=== PATIENT | male | born 1955 | race Caucasian/White ===

== ENCOUNTER 2017-02-24 13:38 | Inpatient (IN) | payer MEDICARE, OTHER ==
[~2017-02-24] VITALS: Ht 170.2 cm; Wt 63.0 kg
[2017-02-24] VITALS (7 sets, daily range): BP systolic 103–152; BP diastolic 57–86
[2017-02-24] MEDS ORDERED: NACL 0.9% 1,000 ML IV SCH ×2 (13:54→17:43)
--- NOTE | 2017-02-24 13:55 | NUR ---
PT BIBA FOR C/O ELEVATED BLOOD SUGAR, 597 IN FIELD. HX DM, HTN, HYPERLIPIDEMIA, CABG. . PT STATESHE FEELS NAUSEOUS;PT VOMITTED 3X INBED;PT STATES HE FEELS WEAK;SKIN IS PINK/WARM/DRY; AAOX4 WITH EVEN AND STEADY GAIT; LUNGS CLEAR BL; HR EVEN AND REGULAR; PT DENIES ANY FEVER, CP, SOB, OR COUGH AT THIS TIME; PATIENT STATES PAIN OF 6/10 ABDOMINAL PAIN AT THIS TIME; PATIENT POSITIONED FOR COMFORT; HOB ELEVATED; BEDRAILS UP X2; BED DOWN. ALL MONITORS IN PLACED.
[2017-02-24 14:12] LABS: BLOOD GAS PCO2 16.7 mmHg (20-50); BLOOD GAS PH 7.205 (7.35-7.45)
[2017-02-24 14:13] LABS: BLOOD GAS BASE EXCESS -18.9 mmol/L (-2.0-2.0); BLOOD GAS HCO3 6.5 mmol/L; BLOOD GAS O2 SAT% 97.9 % (92.0-98.5)
--- NOTE | 2017-02-24 14:23 | NUR ---
PT RESTING ON BED;ASKED FOR WATER;NOTIFIED ERMD IF PT CAN HAVE WATER BECAUSE PT HAS N/V/ABDOMINAL PAIN;
[2017-02-24 14:26] LABS: HEMATOCRIT 49.6 % (36-52); HEMOGLOBIN 15.8 g/dL (12.0-18.0); MEAN CORPUSCULAR HEMOGLOBIN 32 pg (27-31); MEAN CORPUSCULAR HGB CONC 32 g/dL (33-37); MEAN CORPUSCULAR VOLUME 100 fL (80-94); PLATELET COUNT (AUTO) 416 K/uL (140-450); RED BLOOD CELL COUNT(AUTO) 4.97 MIL/uL (4.20-6.10); RED CELL DISTRIBUTION WIDTH 12.7 % (11.6-13.7)
[2017-02-24 14:37] LABS: WHITE BLOOD COUNT (AUTO) 39.6 K/uL (4.8-10.8)
[2017-02-24 14:43] LABS: BAND % (MANUAL) 14 % (0-8); NEUTROPHILS % (MANUAL) 72 (43-65)
[2017-02-24 14:44] LABS: LYMPHOCYTES % (MANUAL) 7 % (20-46); METAMYELOCYTES % 1 % (0-0); MONOCYTES % (MANUAL) 6 % (5-12); PLATELET ESTIMATE ADEQUATE
[2017-02-24 14:53] LABS: INR 1.1 (0.8-1.2); PROTHROMBIN TIME 10.8 secs (10.8-13.4)
[2017-02-24 14:54] LABS: ALBUMIN 4.3 g/dL (3.4-5.0); ANION GAP 34.3 (8-16); CALCIUM 8.5 mg/dL (8.5-10.1); CREATININE 1.6 mg/dL (0.7-1.3); POTASSIUM 5.7 mmol/L (3.5-5.1); TOTAL BILIRUBIN 0.7 mg/dL (0.0-1.0); TOTAL PROTEIN, SERUM 7.8 g/dL (6.4-8.2)
[2017-02-24 14:59] LABS: CARBON DIOXIDE 9.4 mmol/L (21-32)
[2017-02-24 15:09] LABS: LACTIC ACID 3.6 mmol/L (0.4-2.0)
[2017-02-24] MEDS ORDERED: ONDANSETRON 4 MG/2 ML VIAL IVP ONE (15:10)
[2017-02-24 15:12] LABS: APPEARANCE,URINE CLEAR (CLEAR); BILIRUBIN,URINE NEGATIVE (NEGATIVE); BLOOD, URINE 1+ (NEGATIVE); COLOR,URINE YELLOW (YELLOW); LEUKOCYTE ESTERASE ,URINE NEGATIVE (NEGATIVE); NITRITE, URINE NEGATIVE (NEGATIVE); PH,URINE 5.5 (5.0-9.0); PROTEIN,URINE NEGATIVE (NEGATIVE); UGLUCOSE 3+ (NEGATIVE); UROBILINOGEN,URINE 0.2 EU/dL (0.2 - 1)
[2017-02-24] MEDS ORDERED: INSULIN HUMAN REGULAR 100 UNITS in NACL 0.9% 100 ML IV ONE (15:20)
[2017-02-24] MEDS ORDERED: INSULIN HUMAN REGULAR 100 UNITS in NACL 0.9% 100 ML IV SCH ×4 (15:20→17:45)
--- NOTE | 2017-02-24 15:20 | NUR ---
PT RESTING WITH HANDS UNDER HEAD---C/O NAUSEA--GIVEN ZOFRAN IV SPOKE WITH MD OVER PT'S LABS ---DKA PT TO START INSULIN DRIP
[2017-02-24 15:22] LABS: RBC,URINE 0-3 /HPF (0-5); WBC,URINE 0-3 /HPF (0-5)
[2017-02-24 15:23] LABS: BACTERIA,URINE None Seen /HPF (None Seen); SQUAMOUS EPITHELIAL CELL,UR None Seen /LPF (0-3 (FEW))
[2017-02-24] MEDS ORDERED: NACL 0.9% 1,000 ML IV ONE (15:40)
--- NOTE | 2017-02-24 15:47 | NUR ---
NOVOLIN WAS ADMINISTERED AT 1535;BS OF 535;
[2017-02-24] MEDS ORDERED: oxyCODONE/APAP 5/325 MG 1 TAB TAB PO PRN (16:10)
[2017-02-24] MEDS ORDERED: HYDROcodone/APAP 7.5/325 MG 1 TAB PO PRN (16:10)
[2017-02-24] MEDS ORDERED: LORazepam 1 MG TAB PO PRN (16:10)
[2017-02-24] MEDS ORDERED: ACETAMINOPHEN 325 MG TAB PO PRN (16:10)
[2017-02-24] MEDS ORDERED: DOCUSATE SODIUM 100 MG GELCAP PO PRN (16:10)
--- NOTE | 2017-02-24 16:47 | NUR ---
Patient will be admitted to care of . Admited to ICU. Will go to roomICU 3. Belongings list completed. Report to GIULIANA MARMOLEJO.
--- NOTE | 2017-02-24 17:00 | NUR ---
REPORT RECEIVED FROM GIULIANA DELATORRE. PT ARRIVED IN [facility] WITH 2 RN. ALERT AND ORIENTED X4. ABLE TO FOLLOW COMMANDS. NO C/O PAIN OR DISCOMFORT. NO C/O NAUSEA. PERRLA NOTED IN BILATERAL EYES. ON RA SATURATING AT 98%. ST ON MONITOR. ABLE TO MOVE ALL EXTREMITIES. WEAKNESS AND DECREASE IN SENSATION NOTED. LEFT SUBCLAVIAN PERIPHERAL IV 18 GAUGE NOTED. INTACT AND PATENT. INFUSING INSULIN DRIP ORDERED. TOLERATED WELL. PT ABLE TO VOID INDEPENDENTLY. SKIN IS INTACT. SCAR NOTED ON SCALP D/T RECENT INJURY. OPEN TO AIR. SAFETY PRECAUTION MAINTAINED. BED AT LOWEST SETTING. CALL LIGHT WITHIN REACH. WILL CONTINUE TO MONITOR FOR CHANGES.
[2017-02-24] MEDS: NACL 0.9% 1,000 ML IV SCH ×2 (17:33→23:54)
[2017-02-24] MEDS: PIPER/TAZO 3.375GM/D5W PREMIX 50 ML IV SCH (17:50)
[2017-02-24 17:58] LABS: AMYLASE 45 U/L (25-115); CHOL/HDL RATIO 2.5 (1-4.5); CHOLESTEROL 168 mg/dL (<200); FREE T4 (FREE THYROXINE) 1.66 ng/dL (0.76-1.46); HDL CHOLESTEROL 68 mg/dL (40-60); LDL (CALC) 77 mg/dL (60-100); LIPASE 39 U/L (73-393); MAGNESIUM 2.2 mg/dL (1.8-2.4); PHOSPHORUS 5.1 mg/dL (2.5-4.9); THYROID STIMULATING HORMONE 5.84 uIU/mL (0.34-3.74); TRIGLYCERIDES 117 mg/dL (30-150)
[2017-02-24 18:00] LABS: ALCOHOL, BLOOD < 3 mg/dL (<3); LACTATE DEHYDROGENASE 344 U/L (85-227)
[2017-02-24] MEDS: BLOOD GLUCOSE MONITORING 1 DEV DEV FS SCH ×6 (18:51→23:52)
[2017-02-24] MEDS ORDERED: HYDROmorphone 1 MG/ML AMP IVP SCH (18:55)
[2017-02-24] MEDS ORDERED: LORazepam 2 MG/ML VIAL IVP SCH (18:55)
--- NOTE | 2017-02-24 19:15 | NUR ---
REPORT GIVEN TO GIULIANA CHAND. PT IS STABLE.
--- NOTE | 2017-02-24 19:20 | NUR ---
RECEIVED REPORT FROM CORINA GIORDANO
--- NOTE | 2017-02-24 19:20 | NUR ---
PATIENT IN BED, NO SIGNS OF DISTRESS. PATIENT AOX4. PATIENT OXYGEN SATURATION 100 ON ROOM AIR. BREATH SOUNDS CLEAR ON AUSCULTATION. S1S2 HEARD ON AUSCULTATION. PATIENT HAD ACTIVE BOWEL SOUNDS. NPO EXCEPT FOR MEDICATIONS. PATIENT VOIDED 1000ML. PATIENT IS AMBULATORY BUT HAS UNSTEADY GAIT. PATIENTS SKIN IS NOT INTACT, HE HAS A WOUND ON HIS HEAD FROM A FALL FROM 1 DAY AGO. WILL CONTINUE TO MONITOR PATIENT. CALL LIGHT WITHIN REACH, PATIENT CLOSE TO THE NURSES STATION. WILL CONTINUE TO DO FREQUENT VISUAL CHECKS. IV ON LEFT JV #18 INTACT. PATIENT ON INSULIN DRIP. BLOOD GLUCOSE MONITORING EVERY HOUR.
[2017-02-24] MEDS: ONDANSETRON 4 MG/2 ML VIAL IM/IVP PRN (19:28)
--- NOTE | 2017-02-24 19:30 | NUR ---
CENTRAL LINE PLACEMENT BY DR SCHULTZ AND DR SEGURA.
[2017-02-24 19:35] LABS: LACTIC ACID 2.4 mmol/L (0.4-2.0)
--- NOTE | 2017-02-24 19:40 | NUR ---
RECEIVED CRITICAL VALUE FOR PATIENT, LACTIC ACID 2.4. DR SEGURA WAS AT THE BEDSIDE. THE DR WAS MADE AWARE OF THE CRITICAL LACTIC ACID AND DR SEGURA SAID NO FURTHER ORDERS WERE INDICATED.
[2017-02-24 20:11] LABS: ANION GAP 26.6 (8-16); CALCIUM 7.8 mg/dL (8.5-10.1); CARBON DIOXIDE 13.1 mmol/L (21-32); CREATININE 1.5 mg/dL (0.7-1.3); POTASSIUM 4.7 mmol/L (3.5-5.1)
[2017-02-24 20:13] LABS: MAGNESIUM 1.9 mg/dL (1.8-2.4); PHOSPHORUS 2.4 mg/dL (2.5-4.9)
--- NOTE | 2017-02-24 20:30 | NUR ---
CHEST XRAY DONE TO DETERMINE CENTRAL LINE PLACEMENT
--- NOTE | 2017-02-24 21:00 | NUR ---
PATIENT IN BED, NO SIGNS OF DISTRESS. BROTHER AT THE BEDSIDE
--- NOTE | 2017-02-24 23:00 | NUR ---
PATIENT IN BED, NO SIGNS OF DISTRESS. CENTRAL LINE CONFIRMED, INFUSING IV FLUIDS
[2017-02-25] VITALS (14 sets, daily range): BP systolic 90–135; BP diastolic 57–88
[2017-02-25] MEDS: PIPER/TAZO 3.375GM/D5W PREMIX 50 ML IV SCH ×4 (00:05→17:33)
[2017-02-25 00:09] LABS: BLOOD GAS BASE EXCESS -7.3 mmol/L (-2.0-2.0); BLOOD GAS HCO3 16.2 mmol/L; BLOOD GAS O2 SAT% 97.5 % (92.0-98.5); BLOOD GAS PCO2 27.8 mmHg (20-50); BLOOD GAS PH 7.383 (7.35-7.45); BLOOD GAS PO2 92.8 mmHg
[2017-02-25 00:36] LABS: ANION GAP 13.3 (8-16); CALCIUM 7.4 mg/dL (8.5-10.1); CARBON DIOXIDE 23.1 mmol/L (21-32); CREATININE 1.4 mg/dL (0.7-1.3); POTASSIUM 4.4 mmol/L (3.5-5.1)
[2017-02-25] MEDS: BLOOD GLUCOSE MONITORING 1 DEV DEV FS SCH ×16 (00:57→21:43)
[2017-02-25] MEDS: DEXT 5% / NACL 0.45% 1,000 ML IV SCH ×6 (01:00→19:54)
--- NOTE | 2017-02-25 02:00 | NUR ---
PATIENT IN BED RESTING. INSULIN DRIP INFUSING. PATIENTS INSULIN DRIP IS CHANGED FROM 6.3UNITS/HR TO 3.15UNITS AN HOUR. PATIENTS BLOOD SUGAR FELL BELOW 200. DR WAS NOTIFIED
[2017-02-25] MEDS: NACL 0.9% 1,000 ML IV SCH ×3 (02:07→23:04)
--- NOTE | 2017-02-25 04:45 | NUR ---
PATIENTS ANION GAP FELL TO 10.6. DR SEGURA NOTIFIED. DR SEGURA SAID TO WAIT FOR THE NEXT ANION GAP RESULT THAT IS BELOW 12 TO DC INSULIN DRIP.
[2017-02-25 05:11] LABS: ANION GAP 10.6 (8-16); CALCIUM 7.4 mg/dL (8.5-10.1); CARBON DIOXIDE 25.3 mmol/L (21-32); CREATININE 1.3 mg/dL (0.7-1.3); POTASSIUM 3.9 mmol/L (3.5-5.1)
--- NOTE | 2017-02-25 05:50 | NUR ---
PATIENTS BLOOD SUGAR DROPS TO 114, CALLED DR SEGURA AND HE INCREASED D5 1/2 NS TO 250ML/HR. DR CHAIDEZ CAME TO SEE THE PATIENT. I TOLD HIM THAT THE PATIENT HAD PVD AND ALSO HAS AN ORDER FOR SCD. DR CHAIDEZ SAID HE WILL DC SCD'S AND INPUT THE PATIENTS HOME MEDICATION ELIQUIS.
--- NOTE | 2017-02-25 06:45 | NUR ---
PATIENT IN BED RESTING BS 79
--- NOTE | 2017-02-25 07:19 | NUR ---
GAVE REPORT TO SARINA GIORDANO
--- NOTE | 2017-02-25 07:30 | NUR ---
RECEIVED REPORT FROM JAGRUTI GIORDANO. PT AWAKE, ALERT, AND ORIENTED. BEDSIDE MONITOR SHOWS SR. ON ROOM AIR, NO S/S OF RESPIRATORY DISTRESS NOTED. PT HAS RIGHT I.J TLC RUNNING INSULIN DRIP AT 3.15 ML/HR AND D51/2 NS . GOOD BLOOD RETURN. PT ABLE TO MOVE ALL HIS EXTREMITIES .CALL LIGHT IN REACH, HOB ELEVATED 30 DEGREES WITH LOW BED POSITION, WILL CONTINUE TO MONITOR PT.
--- NOTE | 2017-02-25 07:45 | NUR ---
FINGER BLOOD SUGAR CHECKED 58, ORANGE JUICE GIVEN. PT WILL HAVE BREAKFAST IMMEDIATELY.
[2017-02-25 08:10] LABS: HEMATOCRIT 40.9 % (36-52); HEMOGLOBIN 13.9 g/dL (12.0-18.0); MEAN CORPUSCULAR HEMOGLOBIN 33 pg (27-31); MEAN CORPUSCULAR HGB CONC 34 g/dL (33-37); MEAN CORPUSCULAR VOLUME 96 fL (80-94); PLATELET COUNT (AUTO) 296 K/uL (140-450); RED BLOOD CELL COUNT(AUTO) 4.26 MIL/uL (4.20-6.10); WHITE BLOOD COUNT (AUTO) 24.1 K/uL (4.8-10.8)
[2017-02-25] MEDS: PANTOPRAZOLE 40 MG INJ VIAL IVP SCH (08:29)
[2017-02-25] MEDS: ONDANSETRON 4 MG/2 ML VIAL IM/IVP PRN (08:29)
--- NOTE | 2017-02-25 08:29 | NUR ---
DR. MOSLEY MAKING ROUND, UPDATED PT'S CONDITION . PT HAS NAUSEA , ZOFRAN GIVEN ORDERED.
--- NOTE | 2017-02-25 08:33 | NUR ---
PATIENT HAS BEEN SCREENED AND CATEGORIZED HIGH NUTRITION RISK. PATIENT WILL BE SEEN WITHIN 1-2 DAYS OF ADMISSION. 02/25/17-02/26/[address]
--- NOTE | 2017-02-25 09:02 | NUR ---
CM NOTE PER SHOT POLISHER AND INSPECTOR [place], REVIEWS SHOULD BE SENT TO BOTH [facility] AND [facility]. FAXED INITIAL REVIEW TO MARIA EUGENIA [phone] PH [phone] MIRANDA MCCARTY EXT [phone] AND TO [facility] [phone] PH [phone]
[2017-02-25 09:09] LABS: T4 (THYROXINE) 7.5 ug/dL (4.5-12.0)
[2017-02-25 09:14] LABS: ANION GAP 12.5 (8-16); CALCIUM 7.5 mg/dL (8.5-10.1); CARBON DIOXIDE 24.1 mmol/L (21-32); CREATININE 1.2 mg/dL (0.7-1.3); POTASSIUM 3.6 mmol/L (3.5-5.1)
[2017-02-25 09:39] LABS: BAND % (MANUAL) 10 % (0-8); LYMPHOCYTES % (MANUAL) 8 % (20-46); MONOCYTES % (MANUAL) 8 % (5-12); NEUTROPHILS % (MANUAL) 74 (43-65)
[2017-02-25 09:40] LABS: PLATELET ESTIMATE ADEQUATE
--- NOTE | 2017-02-25 09:40 | NUR ---
NOTIFIED THAT PT COMPLAINS HEADACHE AND PT HAD FALL ON FEBRUARY 23 ( PER JAGRUTI GIORDANO). AN OLD WOUND NOTED ON PT'S HEAD. DR. RAMIREZ WILL COME TO CHECK PT.
[2017-02-25] MEDS ORDERED: METOCLOPRAMIDE 10 MG/2 ML INJ VIAL IVP PRN (09:45)
[2017-02-25] MEDS: MORPHINE SULFATE 2 MG/ML SYR IVP PRN ×2 (10:03→21:43)
--- NOTE | 2017-02-25 10:03 | NUR ---
PT COMPLAINED HEADACHE AT THE SCALE OF 8/10. MORPHINE 2 MG GIVEN ORDERED.
[2017-02-25 10:19] LABS: HEMOGLOBIN A1C 10.7 % (4.8-5.6)
[2017-02-25] MEDS: APIXABAN 2.5 MG TAB PO SCH ×2 (11:01→21:42)
--- NOTE | 2017-02-25 11:07 | NUR ---
PT LEFT FOR HEAD CT.
--- NOTE | 2017-02-25 11:20 | NUR ---
PT BACK TO ICU
[2017-02-25 12:10] LABS: ANION GAP 11.5 (8-16); CALCIUM 7.2 mg/dL (8.5-10.1); CARBON DIOXIDE 24.1 mmol/L (21-32); CREATININE 1.1 mg/dL (0.7-1.3); POTASSIUM 3.6 mmol/L (3.5-5.1)
--- NOTE | 2017-02-25 12:28 | NUR ---
02/25/17 RD INITIAL ASSESSMENT COMPLETED PLEASE REFER TO NUTRITION ASSESSMENT UNDER CARE ACTIVITY FOR ESTIMATED NUTRITIONAL NEEDS. 1. CONTINUE CLEAR LIQUID DIET, WHEN MEDICALLY FEASIBLE ADVANCE TOLERATED TO 75 G CONSISTENT CARBOHYDRATE DIET 2. PROVIDE NUTRITION THERAPY EDUCATION NEEDED 3. RD TO FOLLOW-UP 2-3 DAYS; HIGH RISK KIZZY LUNA RD
--- NOTE | 2017-02-25 12:29 | NUR ---
PT SLEEPING AT THIS TIME BUT EASILY AWAKING. PT STATED HE FEELS PAIN RELIVED AND NO NAUSEA AT THIS TIME.
[2017-02-25] MEDS ORDERED: PROBIOTIC SCREEN 1 EA MISC MC PRN (13:05)
[2017-02-25] MEDS ORDERED: DEXTROSE 50% 50 ML SYR IVP PRN (14:05)
--- NOTE | 2017-02-25 14:16 | NUR ---
STOP INSULIN DRIP ORDERED. WILL CLOSELY MONITOR PT.
--- NOTE | 2017-02-25 16:43 | NUR ---
FINGER BLOOD SUGAR CHECKED 108, NO INSULIN COVERAGE NEEDED.
--- NOTE | 2017-02-25 17:30 | NUR ---
DINNER TRAY SERVED, PT HAD 50% OF THE DINNER TRAY.
[2017-02-25] MEDS: GABAPENTIN 300 MG CAP PO SCH (17:33)
--- NOTE | 2017-02-25 19:06 | NUR ---
REPORT GIVEN TO JAGRUTI GIORDANO. NO RESPIRATORY DISTRESS AT THIS TIME. VSS.
--- NOTE | 2017-02-25 19:20 | NUR ---
RECEIVED REPORT FROM SARINA GIORDANO.
--- NOTE | 2017-02-25 19:33 | NUR ---
PATIENT IN BED, NO SIGNS OF DISTRESS. AOX4, BREATH SOUNDS CLEAR. S1S2 HEARD ON AUSCULTATION. PATIENT SINUS RHYTHM ON THE MONITOR. PATIENT HAS DIABETES, ACCU CHECK ACHS. PATIENT VOIDING. PATIENT COMPLAINS OF NUMBNESS ON ALL EXTREMETIES. PATIENT ON ELIQUIS FOR DVT PROPHYLAXIS. TRIPLE LUMEN IJ CATHETER ON RIGHT SIDE. PATIENT DENIES PAIN. CALL LIGHT WITHIN REACH. PATIENT CLOSE TO NURSES STATION. WILL CONTINUE TO DO FREQUENT VISUAL CHECKS.
[2017-02-25] MEDS ORDERED: CARVEDILOL 3.125 MG TAB PO SCH (21:00)
[2017-02-25] MEDS: ATORVASTATIN 20 MG TAB PO SCH (21:41)
[2017-02-25] MEDS: INSULIN LISPRO SLIDING SCALE 100 UNITS/ML VIAL SUBQ PRN (21:50)
--- NOTE | 2017-02-25 22:00 | NUR ---
PATIENT IN BED, COMPLAINS OF HEADACHE 8/10 PAIN. WAS GIVEN MEDICATION AND PATIENT IS NOW SLEEPING, NO COMPLAINTS OF PAIN.
--- NOTE | 2017-02-25 22:30 | NUR ---
PATIENTS BLOOD SUGAR WAS 356. DR. SEGURA CAME TO SEE PATIENT AND WAS NOTIFIED OF THE HIGH BLOOD SUGAR. DR. SEGURA DISCONTINUED D5 1/2 NS AND ORDERS NORMAL SALINE AT 120ML/HR. THE NEW IV FLUIDS WERE STARTED.
[2017-02-25] MEDS ORDERED: APAP/BUTAL/CAFF 325/50/40 MG 1 TAB PO PRN (22:40)
[2017-02-25 23:24] LABS: ANION GAP 15.7 (8-16); CARBON DIOXIDE 20.1 mmol/L (21-32); CREATININE 1.3 mg/dL (0.7-1.3); POTASSIUM 3.8 mmol/L (3.5-5.1)
--- NOTE | 2017-02-25 23:27 | NUR ---
PATIENT VOIDED 750ML
[2017-02-26] VITALS (9 sets, daily range): BP systolic 122–160; BP diastolic 68–86
--- NOTE | 2017-02-26 01:00 | NUR ---
PATIENT IN BED, DENIES PAIN, NO SIGNS OF DISTRESS. SR ON THE MONITOR.
--- NOTE | 2017-02-26 03:50 | NUR ---
PATIENT SLEEPING NO SIGNS OF DISTRESS. O2 SATURATION 99% ON RA. PATIENT VOIDED 825ML
[2017-02-26 05:04] LABS: HEMOGLOBIN 13.5 g/dL (12.0-18.0); MEAN CORPUSCULAR HEMOGLOBIN 32 pg (27-31); MEAN CORPUSCULAR HGB CONC 33 g/dL (33-37); MEAN CORPUSCULAR VOLUME 98 fL (80-94); PLATELET COUNT (AUTO) 251 K/uL (140-450); RED BLOOD CELL COUNT(AUTO) 4.18 MIL/uL (4.20-6.10); RED CELL DISTRIBUTION WIDTH 12.4 % (11.6-13.7)
[2017-02-26] MEDS: PIPER/TAZO 3.375GM/D5W PREMIX 50 ML IV SCH ×4 (05:17→17:37)
[2017-02-26] MEDS: MORPHINE SULFATE 2 MG/ML SYR IVP PRN ×3 (05:30→23:19)
--- NOTE | 2017-02-26 05:34 | NUR ---
PATIENT COMPLAINED OF HEADACHE 03/26, PATIENT WAS GIVEN MEDIATION. PATIENT NOW RESTING.
[2017-02-26] MEDS: NACL 0.9% 1,000 ML IV SCH ×4 (05:44→22:25)
[2017-02-26 06:16] LABS: MAGNESIUM 1.6 mg/dL (1.8-2.4); PHOSPHORUS 2.1 mg/dL (2.5-4.9)
--- NOTE | 2017-02-26 06:27 | NUR ---
PATIENT IN BED SLEEPING NO SIGNS OF DISTRESS
[2017-02-26 06:40] LABS: LYMPHOCYTES % (MANUAL) 4 % (20-46); MONOCYTES % (MANUAL) 9 % (5-12); NEUTROPHILS % (MANUAL) 87 (43-65)
--- NOTE | 2017-02-26 07:15 | NUR ---
GAVE REPORT TO SARINA GIORDANO
[2017-02-26] MEDS: BLOOD GLUCOSE MONITORING 1 DEV DEV FS SCH ×4 (07:21→20:44)
[2017-02-26] MEDS: INSULIN LISPRO SLIDING SCALE 100 UNITS/ML VIAL SUBQ PRN ×2 (07:22→11:53)
--- NOTE | 2017-02-26 07:30 | NUR ---
RECEIVED REPORT FROM JAGRUTI GIORDANO. PT AWAKE, ALERT, AND ORIENTED. BEDSIDE MONITOR SHOWS SR. ON ROOM AIR, NO S/S OF RESPIRATORY DISTRESS NOTED. PT HAS RIGHT I.J TLC RUNNING NS AT 200 ML/HR. GOOD BLOOD RETURN. PT ABLE TO MOVE ALL HIS EXTREMITIES . POC DISCUSSED WITH PT, PT VERBALIZED UNDERSTANDING.CALL LIGHT IN REACH, HOB ELEVATED 30 DEGREES WITH LOW BED POSITION, WILL CONTINUE TO MONITOR PT.
[2017-02-26 07:53] LABS: ANION GAP 15.4 (8-16); CALCIUM 7.3 mg/dL (8.5-10.1); CARBON DIOXIDE 20.8 mmol/L (21-32); POTASSIUM 4.2 mmol/L (3.5-5.1)
[2017-02-26] MEDS: ONDANSETRON 4 MG/2 ML VIAL IM/IVP PRN (08:30)
[2017-02-26] MEDS: CARVEDILOL 3.125 MG TAB PO SCH ×2 (08:46→17:37)
[2017-02-26] MEDS: GABAPENTIN 300 MG CAP PO SCH ×3 (08:46→17:37)
[2017-02-26] MEDS: LACTOBACILLUS RHAMNOSUS GG 1 EACH CAP PO SCH (08:46)
[2017-02-26] MEDS: PANTOPRAZOLE 40 MG INJ VIAL IVP SCH (08:46)
[2017-02-26] MEDS: AMIODARONE 200 MG TAB PO SCH (08:47)
[2017-02-26] MEDS: CLOPIDOGREL 75 MG TAB PO SCH (08:51)
--- NOTE | 2017-02-26 08:51 | NUR ---
CM NOTE FAXED CONCURRENT REVIEW TO [facility] [phone] PH [phone] CM MIREYA MCCARTY EXT [phone] AND TO [facility] [phone] PH [phone]
[2017-02-26] MEDS: FLUDROCORTISONE 0.1 MG TAB PO SCH (08:52)
[2017-02-26] MEDS: FENOFIBRATE 48 MG TAB PO SCH (08:53)
[2017-02-26] MEDS ORDERED: INSULIN DETEMIR 100 UNITS/ML 10 ML VIAL SUBQ SCH ×2 (09:00→21:00)
--- NOTE | 2017-02-26 09:00 | NUR ---
DUE MEDS GIVEN, PT TOLERATED WELL.
[2017-02-26] MEDS: APIXABAN 2.5 MG TAB PO SCH ×2 (09:02→20:51)
--- NOTE | 2017-02-26 11:00 | NUR ---
PT VOIDS 1000 ML CLEAR YELLOW URINE.
--- NOTE | 2017-02-26 12:15 | NUR ---
LUNCH TRAY SERVED. PT HAD 50% OF THE LUNCH TRAY.
--- NOTE | 2017-02-26 13:30 | NUR ---
PT AWAKE, ALERT, AND ORIENTED. ON ROOM AIR, NO S/S OF RESPIRATORY DISTRESS NOTED. VSS,TRANSFERRED PT TO TELE 119B PER ORDER. REPORT GIVEN TO AC GIORDANO.
--- NOTE | 2017-02-26 14:15 | NUR ---
PT BROUGHT UP FROM ICU IN BED, REPORT RECIEVED FROM SARINA RN, PT CARE ASSUMED AT THIS TIME, PT AAOX4, RESP EVNE UNLABORED, SKIN WARM DRY COLOR WNL, PT SPEAKS CLEARLY, MOVES ALL EXT, DENIES PAIN OR DISCOMFORT, CENTRAL LINE IN PLACE TO RIGHT NECK, IVF INFUSING, VSS, PT ORIENTED TO ROOM AND FLOOR, CALL GARCIA WITHIN REACH, SIDE RAILS UP, WILL CONTINUE TO MONITOR.
--- NOTE | 2017-02-26 14:44 | NUR ---
PT C/O LANDAVERDE 12/24, FIORICET GIVEN PER PRN ORDER, WILL CONTINUE TO MONITOR
--- NOTE | 2017-02-26 15:01 | NUR ---
PT STATES LANDAVERDE IS MORE SEVER NOW, PT REFUSES TO WAIT FOR FIORICET START WORKING, PRN MORPHINE GIVEN PER PT'S REQUEST, WILL CONTIEUT O MONITOR ,
[2017-02-26 15:21] LABS: ALBUMIN 2.7 g/dL (3.4-5.0); ANION GAP 10.2 (8-16); CALCIUM 7.4 mg/dL (8.5-10.1); CARBON DIOXIDE 26.6 mmol/L (21-32); CREATININE 0.9 mg/dL (0.7-1.3); MAGNESIUM 1.7 mg/dL (1.8-2.4); PHOSPHORUS 1.8 mg/dL (2.5-4.9); POTASSIUM 3.8 mmol/L (3.5-5.1); TOTAL BILIRUBIN 0.9 mg/dL (0.0-1.0); TOTAL PROTEIN, SERUM 5.3 g/dL (6.4-8.2)
[2017-02-26] MEDS ORDERED: MAGNESIUM OXIDE 400 MG TAB PO SCH (16:42)
--- NOTE | 2017-02-26 17:42 | NUR ---
DUE MEDS GIVEN, PT YANA WELL, PT TALKING AND LAUGHING ON THE PHONE WITH FRIEND, DENIES ANY IMMEDIATE NEEDS.
--- NOTE | 2017-02-26 18:10 | NUR ---
PT SITTING UP EATING DINNER, VISITOR AT BEDSIDE TALKING LAUGHING IN NAD, PT DENIES PAIN OR DISCOMFORT, WILL CONTINUE TO MONITOR.
--- NOTE | 2017-02-26 19:22 | NUR ---
REPORT GIVEN TO DIVISION OPERATIONS SPECIALIST, PT STABLE CONDITION.
--- NOTE | 2017-02-26 19:23 | NUR ---
RECEIVED REPORT, ASSUMED CARE. PT AAOX4. RESPIRATION EVEN AND UNLABORED, NO SOB, NO S/S OF RESPIRATORY DISTRESS AT THIS TIME. IVF NS INFUSING WELL AT 120ML/HR. CENTRAL LINE TO RT IJ IN PLANCE. DISCUSSED PLAN OF CARE. PT VERBALIZED UNDERSTANDING. ALL NEEDS ANTICIPATED. CALL LIGHT WITHIN REACH.
[2017-02-26] MEDS: ATORVASTATIN 20 MG TAB PO SCH (20:50)
--- NOTE | 2017-02-26 20:51 | NUR ---
ALL HS MEDS ADMINISTERED SCHEDULED. BS 108, WITH NO INSULIN COVERAGE PER SLIDING SCALE. PROVIDED HS SNACKS. WILL CONTINUE TO MONITOR.
--- NOTE | 2017-02-26 21:14 | NUR ---
PT SLEEPING AT THIS TIME BUT EASY TO AROUSE. TELE MONITOR SHOWS HR 42BPM. NO S/S OF RESPIRATORY DISTRESS AT THIS TIME. WILL CONTINUE TO MONITOR. Addendum: 02/27/17 at 0047 by Catarina Chaparro RN DISREGARD!!!! WRONG PATIENT
[2017-02-27] VITALS: BP 159/88
[2017-02-27] MEDS: PIPER/TAZO 3.375GM/D5W PREMIX 50 ML IV SCH ×3 (00:17→12:00)
--- NOTE | 2017-02-27 00:20 | NUR ---
PT SLEEPING AT THIS TIME. NO S/S OF RESPIRATORY DISTRESS. NO FACIAL GRIMACING OR MOANING INDICATING PAIN. WILL CONTINUE TO MONITOR.
[2017-02-27] MEDS: NACL 0.9% 1,000 ML IV SCH (03:06)
[2017-02-27 04:00] VITALS: BP 133/75
[2017-02-27 05:55] LABS: BASOPHILS # (AUTO) 0.1 K/uL (0.00-0.22); BASOPHILS % (AUTO) 1.1 % (0.0-2.0); EOSINOPHILS # (AUTO) 0.1 K/uL (0-0.4); EOSINOPHILS % (AUTO) 1.4 % (0.0-4.0); HEMATOCRIT 39.3 % (36-52); HEMOGLOBIN 12.9 g/dL (12.0-18.0); LYMPHOCYTES # (AUTO) 1.7 K/uL (2.0-11.5); LYMPHOCYTES % (AUTO) 16.3 % (20.5-51.1); MEAN CORPUSCULAR HEMOGLOBIN 32 pg (27-31); MEAN CORPUSCULAR HGB CONC 33 g/dL (33-37); MEAN CORPUSCULAR VOLUME 97 fL (80-94); MONOCYTES # (AUTO) 1.1 K/uL (0.8-1.0); MONOCYTES % (AUTO) 10.7 % (1.7-9.3); NEUTROPHILS # (AUTO) 7.5 K/uL (1.8-7.7); NEUTROPHILS % (AUTO) 70.5 % (42.2-75.2); PLATELET COUNT (AUTO) 231 K/uL (140-450); RED BLOOD CELL COUNT(AUTO) 4.03 MIL/uL (4.20-6.10); RED CELL DISTRIBUTION WIDTH 12.1 % (11.6-13.7); WHITE BLOOD COUNT (AUTO) 10.5 K/uL (4.8-10.8)
[2017-02-27 06:01] LABS: ANION GAP 7.1 (8-16); CALCIUM 7.4 mg/dL (8.5-10.1); CARBON DIOXIDE 31.1 mmol/L (21-32); CREATININE 0.8 mg/dL (0.7-1.3); POTASSIUM 3.2 mmol/L (3.5-5.1)
--- NOTE | 2017-02-27 06:15 | NUR ---
PATIENT'S BS 43MG/DL. PT AOX4 AND VERBALLY RESPONSIVE. PT ASYMPTOMATIC. 3 ORANGE JUICE GIVEN, PT TOLERATED WELL. WILL CONTINUE TO MONITOR AND RECHECK THE BS.
--- NOTE | 2017-02-27 06:30 | NUR ---
BS RECHECKED 52 MG/DL. ATTEMPTED TO ADMINISTER D50% WITH EXPLANATIONS OF RISKS/BENEFITS. HOWEVER, PT REFUSED AND STATES, "I ALREADY TOOK ORANGE JUICE. I KNOW MYSELF. MY BLOOD SUGAR WILL GO UP." PT REMAINS ASYMPTOMATIC. CHARGE NURSE AWARE. WILL CONTINUE TO MONITOR AND RECHECK THE BS.
--- NOTE | 2017-02-27 07:00 | NUR ---
BLOOD SUGAR AT THIS TIME 123MG/DL. PT REMAIN ASYMPTOMATIC. CONTINUE TO EDUCATE RE: DIET COMPLIANCE. NO ACUTE CHANGE IN LOC. WILL CONTINUE TO MONITOR.
[2017-02-27] MEDS: BLOOD GLUCOSE MONITORING 1 DEV DEV FS SCH ×2 (07:01→12:09)
--- NOTE | 2017-02-27 07:15 | NUR ---
PT AOX4 AND VERBALLY RESPONSIVE. PT C/O HEADACHE. NO S/S OF RESPIRATORY DISTRESS AT THIS TIME. ENDORSED TO NEXT SHIFT FOR CONTINUITY OF CARE AND TO ADMINISTER PAIN MEDS. PT IN STABLE CONDITION.
--- NOTE | 2017-02-27 07:20 | NUR ---
REPORT RECEIVED FROM ASSISTANT FILM EDITOR, PT AAOX4, RESP EVEN UNLABORED ON ROOM AIR, PT C/O HEADACHE, GARBING HEAD, APPEARS UNCOMFORTABLE, WILL MEDICATE PER ORDER, PLAN OF CARE REVIEWED, ALL QUESTIONS ASKED AND ANSWERED, CALL GARCIA WITHIN REACH, SIDE RAILS UP, WILL CONTINUE TO MONITOR
[2017-02-27] MEDS: MORPHINE SULFATE 2 MG/ML SYR IVP PRN (07:24)
[2017-02-27 07:25] VITALS: BP 129/67
[2017-02-27] MEDS ORDERED: APAP/BUTAL/CAFF 325/50/40 MG 1 TAB PO PRN (08:25)
[2017-02-27] MEDS: CARVEDILOL 3.125 MG TAB PO SCH (08:35)
[2017-02-27] MEDS: AMIODARONE 200 MG TAB PO SCH (08:36)
[2017-02-27] MEDS: PANTOPRAZOLE 40 MG INJ VIAL IVP SCH (08:36)
[2017-02-27] MEDS: LACTOBACILLUS RHAMNOSUS GG 1 EACH CAP PO SCH (08:37)
[2017-02-27] MEDS: FLUDROCORTISONE 0.1 MG TAB PO SCH (08:38)
[2017-02-27] MEDS: GABAPENTIN 300 MG CAP PO SCH ×2 (08:39→12:07)
[2017-02-27] MEDS: CLOPIDOGREL 75 MG TAB PO SCH (08:40)
[2017-02-27] MEDS ORDERED: INSULIN DETEMIR 100 UNITS/ML 10 ML VIAL SUBQ SCH ×2 (08:40→09:00)
--- NOTE | 2017-02-27 08:40 | NUR ---
DUE MEDS GIVEN, YANA WELL, DR SAMULES AT BEDSIDE, BLOOD SUGAR 43 THIS AM NOTIFIED TO DR SAMUELS, CHANGE LEVEMIRE DOSE TO 10U, PT DENIES LANDAVERDE NOW,
[2017-02-27] MEDS: FENOFIBRATE 48 MG TAB PO SCH (08:41)
[2017-02-27] MEDS: APIXABAN 2.5 MG TAB PO SCH (08:47)
--- NOTE | 2017-02-27 08:53 | NUR ---
FAXED CONCURRENT REVIEW TO MARIA EUGENIA AT [phone] PHONE [phone] FAXED CONCURRENT REVIEW TO ABHI DUARTE [phone] PHONE [phone]
--- NOTE | 2017-02-27 10:41 | NUR ---
PT STATES HE FEELS BETTER NOW AND WANTS TO BE DC HOME, DR SAMUELS CALLED TO BEDSIDE TO DISCUSS PLAN OF CARE. BLOOD SUGAR 285. NOW, WILL GIVE INSULIN.
--- NOTE | 2017-02-27 11:30 | NUR ---
IJ CENTRAL LINE REMOVED BY DR SAMUELS, SITE COVERED WITH DRESSING, BLEEDING CONTROLLED.
[2017-02-27] MEDS: INSULIN LISPRO SLIDING SCALE 100 UNITS/ML VIAL SUBQ PRN (12:03)
[2017-02-27 12:30] VITALS: BP 128/70
--- NOTE | 2017-02-27 13:05 | NUR ---
DC INSTRUCTION GIVEN AND EXPLAINED TO PT, PT VERBALIZED FULL UNDERSTANDING, PT GIVEN INFORMATION ON F/U APPOINTMENT, PT UP OUT OF BED WITHOUT PROBLEM, WALKS TO WHEELCHAIR WITH STEADY GAIT, DC HOME NOW WITH FRIEND.
[2017-02-27] MEDS ORDERED: CALCIUM CARBONATE 500 MG TAB PO SCH (13:19)
[2017-02-27] MEDS ORDERED: SODIUM PHOS / POTASSIUM PHOS 1 PKT PDR PO SCH (13:20)
[2017-02-27] MEDS ORDERED: POTASSIUM CHLORIDE 10 MEQ TABER PO SCH (13:30)
--- NOTE | 2017-02-27 14:34 | NUR ---
02/27/17 RD FOLLOW-UP ASSESSMENT COMPLETED PLEASE REFER TO NUTRITION ASSESSMENT UNDER CARE ACTIVITY FOR ESTIMATED NUTRITIONAL NEEDS. 1. CONTINUE 60 GM CONSISTENT CARBOHYDRATE DIET 2. RD TO FOLLOW-UP 3-5 DAYS; MODERATE RISK KIZZY LUNA RD
== END 2017-02-27 13:05 | disposition home or self-care (01) | DRG 637 ==
LOC: MED 13:38 → UNDOADMIN 16:19 → MIC 16:19 → MTU 02-26 13:30
PROVIDERS: ADMIT Family Medicine; ATTEND Family Medicine
PROC: 02HV33Z Insertion of Infusion Device into Superior Vena Cava, Percutaneous Approach (ICD-10-PCS; principal; 2017-02-24)
PROC: B548ZZA Ultrasonography of Superior Vena Cava, Guidance (ICD-10-PCS; 2017-02-24)
DX: E13.10 Other specified diabetes mellitus with ketoacidosis without coma (principal); N17.0 Acute kidney failure with tubular necrosis; R65.10 Systemic inflammatory response syndrome (SIRS) of non-infectious origin without acute organ dysfunction; E87.1 Hypo-osmolality and hyponatremia; I25.10 Atherosclerotic heart disease of native coronary artery without angina pectoris; E83.42 Hypomagnesemia; I10 Essential (primary) hypertension; E11.42 Type 2 diabetes mellitus with diabetic polyneuropathy; E11.51 Type 2 diabetes mellitus with diabetic peripheral angiopathy without gangrene; E11.00 Type 2 diabetes mellitus with hyperosmolarity without nonketotic hyperglycemic-hyperosmolar coma (NKHHC); G44.209 Tension-type headache, unspecified, not intractable; E87.5 Hyperkalemia; E87.8 Other disorders of electrolyte and fluid balance, not elsewhere classified; E83.39 Other disorders of phosphorus metabolism; E05.90 Thyrotoxicosis, unspecified without thyrotoxic crisis or storm; Z95.1 Presence of aortocoronary bypass graft; Z72.89 Other problems related to lifestyle; Z79.4 Long term (current) use of insulin
CPT/HCPCS: 36415; 36600; 70450; 71010; 80048; 80053; 81001; 82150; 82550; 82553; 82803; 82948; 83036; 83605; 83615; 83690; 83735; 83874; 83880; 84100; 84436; 84439; 84443; 84479; 84484; 85025; 85610; 85730; 87040; 87081; 87086; 93005; 96365; 96366; 96375; 99291; C9113; G0482; J1170; J1642; J1815; J2060; J2270; J2405; J2543; J7030; Q0092